=== PATIENT | male | born 1940 | race Caucasian/White ===

== ENCOUNTER 2019-03-08 20:16 | Emergency (ER) | payer MEDICARE, OTHER ==
[~2019-03-08] VITALS: Ht 177.8 cm; Wt 100.0 kg
[2019-03-08] MEDS ORDERED: LEVO100 PO (21:06)
[2019-03-08] MEDS ORDERED: METO25 PO (21:06)
[2019-03-08] MEDS ORDERED: KDUR10 PO (21:06)
[2019-03-08] MEDS ORDERED: RIVA10 PO (21:06)
[2019-03-09] MEDS ORDERED: HYDROCODONE/ACETAMINOPHEN 5-325 MG TABLET PO ONE
[2019-03-09 00:25] LABS: BASOPHILS % (AUTO) 0.2 % (0.0-2.0); EOSINOPHILS % (AUTO) 2.4 % (1.0-6.0); HEMATOCRIT 40.7 % (41-53); HEMOGLOBIN 13.2 g/dL (13.5-17.5); LYMPHOCYTES # (AUTO) 0.8 K/uL (1.0-4.8); LYMPHOCYTES % (AUTO) 15.3 % (22.0-44.0); MEAN CORPUSCULAR HEMOGLOBIN 32.9 pg (26.0-34.0); MEAN CORPUSCULAR HGB CONC 32.3 G/dL (31.0-37.0); MEAN CORPUSCULAR VOLUME 102 fL (80-100); MONOCYTES # (AUTO) 0.7 K/uL (0.1-1.0); MONOCYTES % (AUTO) 12.9 % (2.0-9.0); NEUTROPHILS # (AUTO) 3.6 K/uL (1.8-7.7); NEUTROPHILS % (AUTO) 69.2 % (40.0-70.0); PLATELET COUNT (AUTO) 169 K/uL (150-450)
[2019-03-09 00:33] LABS: ANION GAP 1 mmol/L (8-16); CALCIUM, TOTAL 9.7 mg/dL (8.8-10.5); CARBON DIOXIDE 38 mmol/L (22-29); CHLORIDE 100 mmol/L (98-107); GLOMERULAR FILTR. RATE CALC > 60 mL/min (>60); GLUCOSE,RANDOM 100 mg/dL (70-110); INR 1.2 (0.9-1.1); POTASSIUM 4.7 mmol/L (3.5-5.1); PROTHROMBIN TIME 12.5 SEC (9.4-11.6); SODIUM SERUM 139 mmol/L (136-145); UREA NITROGEN, BLOOD 15 mg/dL (7-18)
[2019-03-09 00:40] LABS: ALANINE AMINOTRANSFERASE 27 U/L (12-78); ALBUMIN 3.5 g/dL (3.4-5.0); ALKALINE PHOSPHATASE 78 U/L (46-116); ASPARTATE AMINOTRANSFERASE 31 U/L (15-37); BILIRUBIN,TOTAL 0.6 mg/dL (0.1-1.0); TOTAL PROTEIN, SERUM 7.1 g/dL (6.4-8.2)
[2019-03-09 02:30] VITALS: BP 158/80
== END 2019-03-09 03:00 | disposition home or self-care (01) ==
LOC: EMS 20:21
DX: M16.0 Bilateral primary osteoarthritis of hip (principal); R14.0 Abdominal distension (gaseous); R10.9 Unspecified abdominal pain; J44.9 Chronic obstructive pulmonary disease, unspecified; I10 Essential (primary) hypertension; E03.9 Hypothyroidism, unspecified; Z88.2 Allergy status to sulfonamides; Z88.1 Allergy status to other antibiotic agents
CPT/HCPCS: 73503